=== PATIENT | female | born 1990 | race Caucasian/White ===

== ENCOUNTER 2021-07-11 14:46 | Emergency (ER) | payer SELFPAY ==
[~2021-07-11] VITALS: Ht 154.9 cm; Wt 72.5 kg
[~2021-07-11 14:46] MED LIST: ACET-789 PO; ACHD5005 PO; AGM875T PO; DCS100C PO; FRS325T PO; IBP600T1 PO; ONDN4T PO; PREN1TAB25 PO; PREN1TAB39 PO; TRM50T PO
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
[2021-07-11] MEDS ORDERED: ONDANSETRON 4 MG/2 ML (SDV) Z0FRAN IM ONE (16:00)
[2021-07-11] MEDS ORDERED: ACETAMINOPHEN 500 MG TAB (TYLENOL) PO ONE (16:00)
[2021-07-11] MEDS ORDERED: ONDANSETRON 4 MG (ZOFRAN) ORAL DISSOLVE TAB ONE (16:12)
[2021-07-11 17:30] VITALS: BP 125/86
== END 2021-07-11 17:30 | disposition home or self-care (01) ==
LOC: EDUNIT# 14:46 → ER 14:47
DX: S37.63XA Laceration of uterus, initial encounter (principal); T74.21XA Adult sexual abuse, confirmed, initial encounter; Y07.03 Male partner, perpetrator of maltreatment and neglect
CPT/HCPCS: 99283